=== PATIENT | female | born 1975 | race Caucasian/White ===

== ENCOUNTER 2019-04-24 07:53 | Day surgery (SDC) | payer BC ==
[~2019-04-24] VITALS: Ht 149.9 cm; Wt 74.8 kg
[2019-04-24] MEDS ORDERED: CEFAZOLIN SOD 1 GM in D5W 50 ML IV ONE (09:00)
[2019-04-24] MEDS ORDERED: CEFAZOLIN 1 GM IVPB PREMIX 50 ML IV ONE (09:15)
[2019-04-24] MEDS ORDERED: MIDAZOLAM HCL 5 MG/5 ML VIAL IVP ONE (10:15)
[2019-04-24] MEDS ORDERED: ONDANSETRON HCL 4 MG/2 ML VIAL IVP ONE (10:15)
[2019-04-24] MEDS ORDERED: PROPOFOL 200MG/ 20ML VIAL (DIPRIVAN) IV ONE (10:15)
[2019-04-24] MEDS ORDERED: SEVOFLURANE 15 MIN GAS INH ONE (10:15)
[2019-04-24] MEDS ORDERED: fentaNYL CITRATE 250 MCG/5 ML AMP IV ONE (10:15)
[2019-04-24] MEDS ORDERED: DEXAMETHASONE SOD PHOSPHATE 4 MG/ML VIAL IVP ONE (10:15)
[2019-04-24] MEDS ORDERED: fentaNYL CITRATE/PF 100 MCG/2 ML AMP IVP ONE (10:15)
[2019-04-24] MEDS ORDERED: KETOROLAC TROMETHAMINE 30 MG VIAL IVP ONE (10:15)
[2019-04-24] MEDS ORDERED: ROCURONIUM BROMIDE 10 MG/ML (ZEMURON) IV ONE (10:15)
[2019-04-24] MEDS ORDERED: LR 1,000 ML IV.SOLN IV ONE (10:15)
[2019-04-24] MEDS ORDERED: LR 1,000 ML IV SCH (10:47)
[2019-04-24] MEDS ORDERED: MEPERIDINE HCL/PF 25 MG/ML DISP.SYRIN IVP PRN (11:00)
[2019-04-24] MEDS ORDERED: HYDROmorphone 1 MG INJ. 1 MG/ML AMPUL IVP PRN (11:00)
[2019-04-24] MEDS ORDERED: HYDROmorphone 2 MG/ML VIAL IVP PRN ×2 (11:00)
[2019-04-24] MEDS ORDERED: ONDANSETRON HCL 4 MG/2 ML VIAL IVP PRN (11:15)
[2019-04-24] MEDS ORDERED: HYDROcodone/ACETAMIN 5-325 MG TAB (NORCO/ VICODIN) PO PRN (11:15)
[2019-04-24] MEDS ORDERED: OXYCODONE/ACETAMINOPHEN 5-325 TABLET PO PRN (11:15)
[2019-04-24 12:30] VITALS: BP_SYST 132
== END 2019-04-24 13:00 | disposition home or self-care (01) ==
LOC: SDS 07:53 → SMU 07:56 → SDS 13:00
PROVIDERS: ATTEND Specialist
DX: N92.0 Excessive and frequent menstruation with regular cycle (principal); D25.0 Submucous leiomyoma of uterus; E66.01 Morbid (severe) obesity due to excess calories; D64.9 Anemia, unspecified; F41.9 Anxiety disorder, unspecified; I10 Essential (primary) hypertension; Z79.899 Other long term (current) drug therapy; Z98.890 Other specified postprocedural states
CPT/HCPCS: 58561; 88305; C1819; J0690; J1100; J1885; J2250; J2405; J2704; J3010 ×2; J7120; J7060

== ENCOUNTER 2023-09-27 06:18 | Inpatient (IN) | payer BC ==
[~2023-09-27] VITALS: Ht 149.9 cm; Wt 84.8 kg
[2023-09-27] VITALS (9 sets, daily range): BP systolic 96–113; PULSE 88–119; RESP 10–25; TEMP 98–98.3; O2SAT 95–100
[2023-09-27] MEDS ORDERED: CEFAZOLIN SOD 2 GM in D5W 50 ML IV ONE (07:00)
[2023-09-27] MEDS ORDERED: BUPIVACAINE /PF 0.25% 30 ML VIAL INJ ONE (08:00)
[2023-09-27] MEDS ORDERED: PHENYLEPHRINE HCL 10 MG/ML VIAL (NEOSYNEPHRINE) ONE (08:00)
[2023-09-27] MEDS ORDERED: ONDANSETRON HCL 4 MG/2 ML VIAL ONE (08:00)
[2023-09-27] MEDS ORDERED: NS IRRIG SOLN 1000 ML IR ONE (08:00)
[2023-09-27] MEDS ORDERED: KETOROLAC TROMETHAMINE 30 MG VIAL ONE (08:00)
[2023-09-27] MEDS ORDERED: MORPHINE SULFATE 10MG/10ML PF AMP ONE (08:00)
[2023-09-27] MEDS ORDERED: PROPOFOL 200MG/ 20ML VIAL (DIPRIVAN) IV ONE (08:00)
[2023-09-27] MEDS ORDERED: LIDOCAINE 2%, 20 ML MDV ONE (08:00)
[2023-09-27] MEDS ORDERED: MIDAZOLAM HCL 2 MG/2 ML VIAL (VERSED) ONE (08:00)
[2023-09-27] MEDS ORDERED: METOPROLOL TARTRATE 5 MG/5 ML VIAL ONE (08:00)
[2023-09-27] MEDS ORDERED: ROCURONIUM BROMIDE 10 MG/ML (ZEMURON) ONE (08:00)
[2023-09-27] MEDS ORDERED: WATER FOR IRRIGATION,STERILE 1,000 ML IRRIG.SOLN IR ONE (08:00)
[2023-09-27] MEDS ORDERED: DESFLURANE 15 MIN GAS INH ONE (08:00)
[2023-09-27] MEDS ORDERED: DEXAMETHASONE SOD PHOSPHATE 4 MG/ML VIAL ONE (08:00)
[2023-09-27] MEDS ORDERED: LR 1,000 ML IV.SOLN IV ONE (08:00)
[2023-09-27] MEDS ORDERED: SUGAMMADEX SODIUM 200 MG/2 ML VIAL IV ONE (08:00)
[2023-09-27] MEDS ORDERED: BUPIVACAINE /DEX PF 0.75% SPINAL 2 ML AMP INJ ONE (08:00)
[2023-09-27] MEDS ORDERED: ACETAMINOPHEN I.V. 1000 MG 100 ML IV ONE (09:00)
[2023-09-27] MEDS ORDERED: HYDROmorphone 1 MG/ML INJ. CARTRIDGE IVP PRN ×2 (09:00)
[2023-09-27] MEDS ORDERED: MIDAZOLAM HCL 2 MG/2 ML VIAL (VERSED) IVP PRN (09:00)
[2023-09-27] MEDS ORDERED: MEPERIDINE HCL/PF 25 MG/ML DISP.SYRIN IVP PRN (09:00)
[2023-09-27] MEDS ORDERED: LABETALOL 100 MG/ 20ML VIAL IVP PRN (09:00)
[2023-09-27] MEDS ORDERED: DIPHENHYDRAMINE INJ 50 MG/ML VIAL IVP PRN (09:00)
[2023-09-27] MEDS ORDERED: NALOXONE HCL 0.4 MG/ML AMP (NARCAN) IVP PRN ×4 (09:00→21:45)
[2023-09-27] MEDS ORDERED: METOCLOPRAMIDE HCL 10 MG/2 ML VIAL IVP PRN (09:00)
[2023-09-27] MEDS ORDERED: NOR10 PO (09:05)
[2023-09-27] MEDS ORDERED: NORT25CA5 PO (09:05)
[2023-09-27] MEDS ORDERED: LOSA-415 PO (09:05)
[2023-09-27] MEDS ORDERED: TAMO20TA4 PO (09:05)
[2023-09-27] MEDS ORDERED: HYDROcodone/ACETAMIN 5-325 MG TAB (NORCO/ VICODIN) PO PRN ×2 (10:30→21:45)
[2023-09-27] MEDS ORDERED: OXYCODONE/ACETAMINOPHEN 5-325 TABLET PO PRN ×2 (10:30)
[2023-09-27] MEDS: ALBUMIN HUMAN 5% 250 ML IV ONE ×4 (11:45→13:03)
[2023-09-27] MEDS ORDERED: METOCLOPRAMIDE HCL 10 MG/2 ML VIAL ONE (12:16)
[2023-09-27] MEDS ORDERED: ALBUMIN HUMAN 5% 250 ML IV ONE ×3 (12:26→13:24)
[2023-09-27 12:47] LABS: BASOPHILS % (AUTO) 0.2 % (0.0-2.0); EOSINOPHILS % (AUTO) 0.1 % (0.0-4.0); HEMATOCRIT 27.5 % (36-48); HEMOGLOBIN 9.1 g/dL (12.0-16.0); LYMPHOCYTES # (AUTO) 1.3 K/uL (1.0-5.5); LYMPHOCYTES % (AUTO) 7.7 % (20.5-51.5); MEAN CORPUSCULAR HEMOGLOBIN 29 pg (27-31); MEAN CORPUSCULAR HGB CONC 33 % (32-36); MEAN CORPUSCULAR VOLUME 87 fL (79.0-98.0); MONOCYTES # (AUTO) 0.7 K/uL (0.0-1.0); MONOCYTES % (AUTO) 4.4 % (1.7-9.3); NEUTROPHILS # (AUTO) 14.4 K/uL (1.8-7.7); NEUTROPHILS % (AUTO) 87.6 % (40.0-70.0); PLATELET COUNT (AUTO) 186 K/uL (130-430); RED BLOOD CELL COUNT(AUTO) 3.17 MIL/uL (4.2-6.2); RED CELL DISTRIBUTION WIDTH 13.6 % (9.0-15.0); WHITE BLOOD COUNT (AUTO) 16.5 K/uL (4.8-10.8)
[2023-09-27] MEDS: ONDANSETRON HCL 4 MG/2 ML VIAL IVP PRN ×2 (16:06→20:21)
[2023-09-27] MEDS: SIMETHICONE 80 MG TAB.CHEW PO SCH ×2 (16:50→21:00)
[2023-09-27] MEDS: KETOROLAC TROMETHAMINE 30 MG VIAL IVP SCH ×2 (17:54→23:54)
[2023-09-27] MEDS: ceFAZolin SODIUM 2 GM in D5W 100 ML IV SCH (17:55)
[2023-09-27] MEDS: LR 1,000 ML IV SCH (17:55)
[2023-09-27] MEDS ORDERED: NOREPINEPHRINE BITARTRATE 4 MG in D5W 246 ML IV PRN (18:00)
[2023-09-27 19:48] LABS: BASOPHILS % (AUTO) 0.1 % (0.0-2.0); HEMATOCRIT 28.6 % (36-48); HEMOGLOBIN 9.5 g/dL (12.0-16.0); LYMPHOCYTES # (AUTO) 0.8 K/uL (1.0-5.5); MEAN CORPUSCULAR HEMOGLOBIN 29 pg (27-31); MEAN CORPUSCULAR HGB CONC 33 % (32-36); MEAN CORPUSCULAR VOLUME 86 fL (79.0-98.0); MONOCYTES # (AUTO) 0.7 K/uL (0.0-1.0); MONOCYTES % (AUTO) 4.8 % (1.7-9.3); NEUTROPHILS # (AUTO) 13.9 K/uL (1.8-7.7); NEUTROPHILS % (AUTO) 90.1 % (40.0-70.0); PLATELET COUNT (AUTO) 189 K/uL (130-430); RED BLOOD CELL COUNT(AUTO) 3.33 MIL/uL (4.2-6.2); RED CELL DISTRIBUTION WIDTH 13.5 % (9.0-15.0); WHITE BLOOD COUNT (AUTO) 15.4 K/uL (4.8-10.8)
[2023-09-27 20:07] LABS: ALBUMIN 3.5 g/dL (3.4-4.8); CALCIUM 8.4 mg/dL (8.4-11.0); CREATININE 0.76 mg/dL (0.55-1.30); POTASSIUM 3.9 mmol/L (3.5-5.1); TOTAL BILIRUBIN 0.5 mg/dL (0.0-1.0); TOTAL PROTEIN, SERUM 6.2 g/dL (6.4-8.3)
[2023-09-27] MEDS ORDERED: ONDANSETRON HCL 4 MG/2 ML VIAL IVP PRN (21:45)
[2023-09-27] MEDS ORDERED: ACETAMINOPHEN 325 MG TABLET PO PRN (21:45)
[2023-09-27] MEDS ORDERED: LORazepam 2 MG/ML VIAL IVP PRN (21:45)
[2023-09-28] VITALS (18 sets, daily range): BP systolic 90–137; PULSE 91–119; RESP 13–43; TEMP 98–98.8; O2SAT 93–100
[2023-09-28] MEDS ORDERED: PIPERACILLIN/TAZOBACTAM 3.375 GM/VIAL (ZOSYN) IV ONE (00:06)
[2023-09-28] MEDS: PIPERACILLIN/TAZO 3.375/DEX-IS 50 ML IV SCH ×4 (00:19→18:04)
[2023-09-28] MEDS: ceFAZolin SODIUM 2 GM in D5W 100 ML IV SCH ×2 (02:04→10:08)
[2023-09-28] MEDS: LR 1,000 ML IV SCH ×2 (04:44→07:36)
[2023-09-28 05:07] LABS: BASOPHILS % (AUTO) 0.1 % (0.0-2.0); EOSINOPHILS % (AUTO) 0.1 % (0.0-4.0); HEMOGLOBIN 9.1 g/dL (12.0-16.0); LYMPHOCYTES # (AUTO) 1.7 K/uL (1.0-5.5); LYMPHOCYTES % (AUTO) 11.5 % (20.5-51.5); MEAN CORPUSCULAR HEMOGLOBIN 29 pg (27-31); MEAN CORPUSCULAR HGB CONC 34 % (32-36); MEAN CORPUSCULAR VOLUME 86 fL (79.0-98.0); MONOCYTES # (AUTO) 0.9 K/uL (0.0-1.0); MONOCYTES % (AUTO) 6.1 % (1.7-9.3); NEUTROPHILS % (AUTO) 82.2 % (40.0-70.0); PLATELET COUNT (AUTO) 193 K/uL (130-430); RED BLOOD CELL COUNT(AUTO) 3.13 MIL/uL (4.2-6.2); RED CELL DISTRIBUTION WIDTH 13.6 % (9.0-15.0); WHITE BLOOD COUNT (AUTO) 14.5 K/uL (4.8-10.8)
[2023-09-28] MEDS: KETOROLAC TROMETHAMINE 30 MG VIAL IVP SCH ×2 (05:10→11:47)
[2023-09-28 05:13] LABS: ALBUMIN 2.9 g/dL (3.4-4.8); CALCIUM 7.8 mg/dL (8.4-11.0); CREATININE 0.68 mg/dL (0.55-1.30); POTASSIUM 3.7 mmol/L (3.5-5.1); TOTAL BILIRUBIN 0.4 mg/dL (0.0-1.0); TOTAL PROTEIN, SERUM 5.4 g/dL (6.4-8.3)
[2023-09-28] MEDS: SIMETHICONE 80 MG TAB.CHEW PO SCH ×4 (08:21→21:56)
[2023-09-28] MEDS: NORTRIPTYLINE HCL 25 MG CAPSULE PO SCH (08:51)
[2023-09-28] MEDS: TAMOXIFEN CITRATE 10 MG TABLET PO SCH (08:52)
[2023-09-28] MEDS ORDERED: BISACODYL 10 MG/SUPPOSITORY RC ONE (10:30)
[2023-09-28] MEDS ORDERED: NS 500 ML IV ONE (11:15)
[2023-09-28] MEDS ORDERED: CEFAZOLIN 1 GM IVPB PREMIX 0 ML IV ONE (12:00)
[2023-09-28] MEDS: HYDROcodone/ACETAMIN 10-325 MG TAB PO PRN (18:10)
[2023-09-29] MEDS: HYDROcodone/ACETAMIN 10-325 MG TAB PO PRN ×2 (00:50→18:29)
[2023-09-29 01:00] VITALS: BP_SYST 131; PULSE 115; RESP 17; TEMP 99.8; O2SAT 93
[2023-09-29] MEDS: LR 1,000 ML IV SCH ×2 (01:59→14:02)
[2023-09-29] MEDS: PIPERACILLIN/TAZO 3.375/DEX-IS 50 ML IV SCH ×4 (01:59→17:31)
[2023-09-29 05:23] LABS: ERYTHROCYTE SEDIMENTATION RATE 29 MM/HR (0-20)
[2023-09-29 05:29] LABS: BASOPHILS % (AUTO) 0.1 % (0.0-2.0); HEMATOCRIT 29.8 % (36-48); LYMPHOCYTES # (AUTO) 1.1 K/uL (1.0-5.5); LYMPHOCYTES % (AUTO) 6.9 % (20.5-51.5); MEAN CORPUSCULAR HEMOGLOBIN 29 pg (27-31); MEAN CORPUSCULAR HGB CONC 34 % (32-36); MEAN CORPUSCULAR VOLUME 86 fL (79.0-98.0); MONOCYTES # (AUTO) 0.9 K/uL (0.0-1.0); MONOCYTES % (AUTO) 5.7 % (1.7-9.3); NEUTROPHILS # (AUTO) 14.4 K/uL (1.8-7.7); NEUTROPHILS % (AUTO) 87.3 % (40.0-70.0); PLATELET COUNT (AUTO) 203 K/uL (130-430); RED BLOOD CELL COUNT(AUTO) 3.46 MIL/uL (4.2-6.2); RED CELL DISTRIBUTION WIDTH 13.7 % (9.0-15.0); WHITE BLOOD COUNT (AUTO) 16.5 K/uL (4.8-10.8)
[2023-09-29 05:47] LABS: CALCIUM 8.2 mg/dL (8.4-11.0); CREATININE 0.62 mg/dL (0.55-1.30); TOTAL BILIRUBIN 0.4 mg/dL (0.0-1.0); TOTAL PROTEIN, SERUM 6.5 g/dL (6.4-8.3)
[2023-09-29 08:00] VITALS: BP_SYST 107; PULSE 107; RESP 18; TEMP 98.9; O2SAT 96
[2023-09-29] MEDS: SIMETHICONE 80 MG TAB.CHEW PO SCH ×4 (08:45→21:02)
[2023-09-29] MEDS: NORTRIPTYLINE HCL 25 MG CAPSULE PO SCH (08:45)
[2023-09-29] MEDS: TAMOXIFEN CITRATE 10 MG TABLET PO SCH (08:45)
[2023-09-29 12:00] VITALS: BP_SYST 125; PULSE 59; RESP 18; TEMP 99; O2SAT 96
[2023-09-29 16:00] VITALS: BP_SYST 127; PULSE 69; RESP 18; TEMP 98.7; O2SAT 96
[2023-09-29 20:00] VITALS: BP_SYST 116; PULSE 111; RESP 18; TEMP 98.9; O2SAT 93
[2023-09-29] MEDS: NORMAL SALINE 5 ML DISP.SYRIN IVF SCH (21:02)
[2023-09-30] VITALS (7 sets, daily range): BP systolic 112–134; PULSE 101–124; RESP 18–20; TEMP 98.2–98.6; O2SAT 93–99
[2023-09-30] MEDS: PIPERACILLIN/TAZO 3.375/DEX-IS 50 ML IV SCH ×3 (00:08→13:15)
[2023-09-30] MEDS: NORMAL SALINE 5 ML DISP.SYRIN IVF SCH (06:26)
[2023-09-30 06:48] LABS: ERYTHROCYTE SEDIMENTATION RATE 80 MM/HR (0-20)
[2023-09-30 06:55] LABS: CALCIUM 8.1 mg/dL (8.4-11.0); CREATININE 0.58 mg/dL (0.55-1.30); POTASSIUM 3.3 mmol/L (3.5-5.1)
[2023-09-30 07:00] LABS: EOSINOPHILS # (AUTO) 0.1 K/uL (0.0-0.4); HEMOGLOBIN 11.1 g/dL (12.0-16.0)
[2023-09-30 07:24] LABS: BASOPHILS % (AUTO) 0.1 % (0.0-2.0); EOSINOPHILS % (AUTO) 0.7 % (0.0-4.0); LYMPHOCYTES # (AUTO) 1.4 K/uL (1.0-5.5); LYMPHOCYTES % (AUTO) 8.8 % (20.5-51.5); MEAN CORPUSCULAR HEMOGLOBIN 29 pg (27-31); MEAN CORPUSCULAR HGB CONC 34 % (32-36); MEAN CORPUSCULAR VOLUME 86 fL (79.0-98.0); MONOCYTES # (AUTO) 0.9 K/uL (0.0-1.0); MONOCYTES % (AUTO) 5.4 % (1.7-9.3); NEUTROPHILS # (AUTO) 13.8 K/uL (1.8-7.7); PLATELET COUNT (AUTO) 289 K/uL (130-430); RED BLOOD CELL COUNT(AUTO) 3.84 MIL/uL (4.2-6.2); RED CELL DISTRIBUTION WIDTH 13.3 % (9.0-15.0); WHITE BLOOD COUNT (AUTO) 16.2 K/uL (4.8-10.8)
[2023-09-30] MEDS: TAMOXIFEN CITRATE 10 MG TABLET PO SCH (09:13)
[2023-09-30] MEDS: NORTRIPTYLINE HCL 25 MG CAPSULE PO SCH (09:14)
[2023-09-30] MEDS: SIMETHICONE 80 MG TAB.CHEW PO SCH ×2 (09:14→13:17)
[2023-09-30] MEDS ORDERED: HYDR-3919 PO (09:30)
[2023-09-30] MEDS ORDERED: IBUP-1969 PO (09:32)
[2023-09-30] MEDS ORDERED: LEVO-62 PO (11:08)
[2023-09-30] MEDS ORDERED: POTASSIUM CHLORIDE 20 MEQ TABLET.ER PO ONE (11:30)
[2023-09-30] MEDS: HYDROcodone/ACETAMIN 10-325 MG TAB PO PRN (11:55)
== END 2023-09-30 17:00 | disposition home health service (06) | DRG 742 ==
LOC: SMU 06:18 → SIC 15:45 → SMU 09-28 21:10 → STU 09-29 01:38 → SMU 09-30 00:01
PROVIDERS: ADMIT Specialist; ATTEND Specialist
PROC: 0DNU0ZZ Release Omentum, Open Approach (ICD-10-PCS; principal; 2023-09-28)
PROC: 0UT90ZZ Resection of Uterus, Open Approach (ICD-10-PCS; 2023-09-28)
PROC: 0UB10ZZ Excision of Left Ovary, Open Approach (ICD-10-PCS; 2023-09-28)
DX: D25.2 Subserosal leiomyoma of uterus (principal); E44.0 Moderate protein-calorie malnutrition; R57.9 Shock, unspecified; N83.202 Unspecified ovarian cyst, left side; Z68.37 Body mass index [BMI] 37.0-37.9, adult; D64.9 Anemia, unspecified; E83.51 Hypocalcemia; R73.9 Hyperglycemia, unspecified; E83.52 Hypercalcemia; E87.6 Hypokalemia; E88.09 Other disorders of plasma-protein metabolism, not elsewhere classified; E78.5 Hyperlipidemia, unspecified; K66.0 Peritoneal adhesions (postprocedural) (postinfection); N89.5 Stricture and atresia of vagina; Z30.430 Encounter for insertion of intrauterine contraceptive device; Z90.49 Acquired absence of other specified parts of digestive tract; Z90.710 Acquired absence of both cervix and uterus; D25.1 Intramural leiomyoma of uterus
CPT/HCPCS: 36415; 71045; 76376; 80048; 80053; 83605; 85025; 85651-TC; 86886; 86900; 86901; 87040; 87081; 87086; 88305; 88307; 93005; 97110-GP; 97116-GP; 97530-GP; G0378; J0131; J0690; J1100; J1885; J2001; J2274; J2370; J2405; J2543; J2704; J2765; J3465; J3490; J7060; J7120; P9041